=== PATIENT | female | born 1970 | race Caucasian/White ===

== ENCOUNTER → 2019-04-29 | Outpatient (CLI) | payer OTHER ==
--- NOTE | 2019-04-29 08:37 | US ---
EXAMINATION TYPE: US liver DATE OF EXAM: 04/29/2019 COMPARISON: NONE CLINICAL HISTORY: R94.5 elevated liver test. Intermittent nausea and not feeling good x couple week, history of cholecystectomy. EXAM MEASUREMENTS: Liver Length: 14.0 cm Gallbladder Wall: surgically absent CBD: 0.6 cm Right Kidney: 10.8 x 4.9 x 3.8 cm Pancreas: visualized portions wnl, tail obscured by overlying midline bowel gas Liver: mildly heterogeneous Gallbladder: surgically absent Evidence for sonographic Kramer's sign: no CBD: visualized portions wnl, limited by overlying bowel gas Right Kidney: wnl IMPRESSION: 1. Findings suggest mild hepatic steatosis.
== END ==
LOC: RADUSWWP 08:02
PROVIDERS: ATTEND Internal Medicine
DX: R94.5 Abnormal results of liver function studies (principal); Z88.5 Allergy status to narcotic agent
CPT/HCPCS: 76705

== ENCOUNTER → 2019-05-25 | Outpatient (CLI) | payer OTHER ==
[2019-05-25 19:20] LABS: Iron Saturation 22.26 (12.00-45.00)
[2019-05-25 19:52] LABS: Hepatitis A Antibody IgM Non-Reactive (Non-Reactive); Hepatitis B Core IgM Non-Reactive (Non-Reactive)
[2019-05-25 20:03] LABS: Folate, Serum 11.2 ng/mL
== END | disposition home or self-care (01) ==
LOC: LABWHC1 13:26
PROVIDERS: ATTEND Internal Medicine
DX: E11.9 Type 2 diabetes mellitus without complications (principal); R94.5 Abnormal results of liver function studies; R53.82 Chronic fatigue, unspecified
CPT/HCPCS: 36415; 80074; 82607; 82728; 82746; 82955; 83540; 83550

== ENCOUNTER → 2019-06-26 | Outpatient (CLI) | payer OTHER ==
--- NOTE | 2019-06-30 13:48 | MM ---
Reason for exam: screening (asymptomatic). History: Patient is postmenopausal. Family history of premenopausal breast cancer in sister at age 43. Benign right breast excisional biopsy many years ago. MG Screening Mammo w CAD Bilateral CC and MLO view(s) were taken. No prior studies available for comparison. The breast tissue is heterogeneously dense. This may lower the sensitivity of mammography. There is a 5mm oval subareolar density 2cm from the nipple seen on the MLO on the left breast. There are benign-appearing coarse calcifications bilaterally. ASSESSMENT: Incomplete: need additional imaging evaluation, BI-RAD 0 RECOMMENDATION: Ultrasound of the left breast. [facility] will attempt to contact patient to return for ultrasound.
== END | disposition home or self-care (01) ==
LOC: RADMAMWWP 14:32
PROVIDERS: ATTEND Internal Medicine
DX: Z12.31 Encounter for screening mammogram for malignant neoplasm of breast (principal)
CPT/HCPCS: 77067

== ENCOUNTER → 2019-07-16 | Outpatient (CLI) | payer OTHER ==
--- NOTE | 2019-07-16 11:32 | USB ---
Reason for exam: additional evaluation requested from abnormal screening. History: Patient is postmenopausal. Family history of premenopausal breast cancer in sister at age 43. Physical Findings: Nurse Summary: inversion, not new per patient states both were inverted before nursing, soft, nodular (nurse TM). US Breast Workup Limited LT Left limited breast ultrasound including focal area of concern, retroareolar and axilla demonstrates a 4 x 3 x 5mm oval, cystic lesion at 10 o'clock, benign, corresponds with mammogram. These results were verbally communicated with the patient and result sheet given to the patient on 07/16/19. ASSESSMENT: Benign, BI-RAD 2 RECOMMENDATION: Return to routine screening mammogram schedule for both breasts.
== END | disposition home or self-care (01) ==
LOC: RADUSWWP 09:32
PROVIDERS: ATTEND Internal Medicine
DX: R92.8 Other abnormal and inconclusive findings on diagnostic imaging of breast (principal)

== ENCOUNTER → 2019-08-24 | Outpatient (CLI) | payer OTHER ==
[2019-08-24 14:44] VITALS: BP 135/83; PULSE 89; RESP 18; TEMP 98.2
[2019-08-24 15:32] LABS: HCT 45.1 % (34.0-46.0); HGB 14.6 gm/dL (11.4-16.0); MCH 25.3 pg (25.0-35.0); MCHC 32.3 g/dL (31.0-37.0); MCV 78.3 fL (80.0-100.0); Mean Platelet Volume 8.1; Platelet Count 251 k/uL (150-450); RBC 5.77 m/uL (3.80-5.40); WBC 11.6 k/uL (3.8-10.6)
[2019-08-25 00:44] LABS: African American GFR (CKD) 99.6 (60.0-200.0); Albumin 4.3 g/dL (3.80-4.90); Albumin/Globulin Ratio 1.72 (1.60-3.17); Anion Gap 9.5 mmol/L (4.00-12.00); BUN/Creat Ratio 18.75 Ratio (12.00-20.00); Calcium 9.6 mg/dL (8.7-10.3); Carbon Dioxide 25.5 mmol/L (21.6-31.8); Globulin 2.5 g/dL (1.6-3.3); Potassium 4.2 mmol/L (3.5-5.5); Total Bilirubin 0.6 mg/dL (0.2-1.2); Total Protein 6.8 g/dL (6.2-8.2)
[2019-08-25 00:46] LABS: Iron Saturation 27.34 (12.00-45.00)
[2019-08-25 00:54] LABS: Vitamin D 25 Hydroxy 18.9 ng/mL (30.0-100.0)
[2019-08-25 00:55] LABS: Ferritin 106.9 ng/mL (10.0-291.0)
[2019-08-25 01:00] LABS: Folate, Serum 14.1 ng/mL
[2019-08-25 01:09] LABS: Hemoglobin A1C 5.9 % (4.0-6.0)
--- NOTE | 2019-08-27 11:11 | P.HPBAR ---
Bariatric H&P - History & Physicial H&P Date: 08/27/19 History & Physicial: Visit/CC: new pt appt Patient initial contact: Initial weight: 98.566 kg Initial weight in pounds: 217.30 Height: 5 ft 5 in Initial BMI: 36.1 Last weight: Current weight: 98.566 kg Current weight in pounds: Current BMI: Hodgen body weight (based on NIH guidelines): 56.699 kg Excess body weight loss: The patient is a 49 year-old F who presents for Bariatric Assessment. Patient presents today for new patient consultation. She is interested in sleeve gastrectomy. She's had lifetime problem obesity. Her BMI is 36. She has multiple comorbidities. Past Medical History Past Medical History: GERD/Reflux, Osteoarthritis (OA) Additional Past Medical History / Comment(s): thalessemia History of Any Multi-Drug Resistant Organisms: None Reported Past Surgical History: Cholecystectomy, Tubal Ligation, Uterine Ablation Past Anesthesia/Blood Transfusion Reactions: No Reported Reaction Past Psychological History: No Psychological Hx Reported Smoking Status: Current every day smoker Past Alcohol Use History: None Reported Additional Past Alcohol Use History / Comment(s): smokes 1/2 pack per day Past Drug Use History: None Reported Surgical - Exam Vital Signs Temp Pulse Resp BP Pulse Ox 98.2 F 89 18 135/83 98 08/24/19 14:38 08/24/19 14:38 08/24/19 14:38 08/24/19 14:38 08/24/19 14:38 - General well developed, well nourished, no distress - Eyes PERRL - ENT normal pinna - Neck no masses - Respiratory normal expansion - Cardiovascular Rhythm: regular - Abdomen Abdomen: soft, non tender Results - Labs 08/24/19 15:14 08/24/19 15:14 Bariatric Assessment & Plan Plan: RBC, BMI 36. Patient seems to have a good understanding of sleeve gastrectomy. We went over the risks and benefits of the procedure we discussed the risk of gastric staple line disruption. Patient will be scheduled for EGD. Bariatric Checklist Checklist: Plan: Checklist: EGD: 1. Hiatal hernia: 2. H. Pylori: HgbA1c: Vitamin D: Smoking: Current every day smoker Primary care physician referral: Diandra Psychiatry clearance: Cardiology clearance: Sleep study: Diet journal: VTE risk score: VTE risk level: Rehab needs at discharge:
== END ==
LOC: BARWHC3 14:16
PROVIDERS: ATTEND Surgery
DX: E66.9 Obesity, unspecified (principal); F17.200 Nicotine dependence, unspecified, uncomplicated; D50.8 Other iron deficiency anemias; E55.9 Vitamin D deficiency, unspecified; Z68.36 Body mass index [BMI] 36.0-36.9, adult
CPT/HCPCS: 84425; 80053; 82607; 82728; 82746; 83540; 83550; 85027; 82306; 83036; 93005; 36415; G0463; 99201

== ENCOUNTER 2019-09-18 07:50 | Day surgery (SDC) | payer OTHER ==
[2019-09-17 11:13] VITALS: BMI 36.2
[~2019-09-18 07:50] MED LIST: LACTATED RINGERS 1,000 ML IV SCH; LIDOCAINE 1% 20 ML VIAL (10MG/ML) FOR IV START INTRADERMA PRN
[2019-09-18 08:12] VITALS: TEMP 97.4
[2019-09-18] MEDS ORDERED: PROPOFOL 10 MG/ML 20 ML VIAL IV ONE (09:19)
[2019-09-18] MEDS ORDERED: LIDOCAINE 1% INJ 10MG/ML (20 ML MDV) ONE (09:19)
--- NOTE | 2019-09-18 09:22 | P.GSHP ---
History of Present Illness H&P Date: 09/18/19 Chief Complaint: GERD, morbid obesity This a 49-year-old female who presents today for EGD. Patient is undergoing workup for sleeve gastrectomy. Complaints of GERD. Past Medical History Past Medical History: GERD/Reflux, Hypertension, Osteoarthritis (OA) Additional Past Medical History / Comment(s): THALASSEMIA, "FATTY LIVER" , History of Any Multi-Drug Resistant Organisms: None Reported Past Surgical History: Cholecystectomy, Tonsillectomy, Tubal Ligation, Uterine Ablation Past Anesthesia/Blood Transfusion Reactions: Motion Sickness Smoking Status: Current every day smoker - Past Family History Sister(s) Family Medical History: Cancer Additional Family Medical History / Comment(s): BREAST CANCER Father Family Medical History: Cancer Medications and Allergies Home Medications Medication Instructions Recorded Confirmed Type Meloxicam [Mobic] 15 mg PO DAILY 08/17/19 09/17/19 History Omeprazole [PriLOSEC] 20 mg PO DAILY PRN 08/17/19 09/18/19 History Phentermine HCl [Adipex P] 15 mg PO DAILY 08/17/19 09/17/19 History Nicotine 21Mg/24Hr Patch [Habitrol] 1 each TRANSDERM DAILY 08/24/19 09/17/19 History Allergies Allergy/AdvReac Type Severity Reaction Status Date / Time codeine Allergy Rash/Hives, Verified 09/18/19 08:07 SHORTNESS OF BREATH iodine Allergy Unknown Verified 09/18/19 08:07 Childhood Surgical - Exam Vital Signs Temp Pulse Resp BP Pulse Ox 97.4 F L 98 16 128/74 97 09/18/19 08:10 09/18/19 08:10 09/18/19 08:10 09/18/19 08:10 09/18/19 08:10 BMI 36 - General well developed, well nourished - Eyes PERRL - ENT normal pinna - Neck no masses - Respiratory normal expansion - Cardiovascular Rhythm: regular - Abdomen Abdomen: soft, non tender Assessment and Plan Assessment: GERD, morbid obesity. We'll perform EGD.
--- NOTE | 2019-09-18 09:35 | P.OP ---
Date of Procedure: 09/18/19 Preoperative Diagnosis: Morbid obesity GERD Postoperative Diagnosis: Antral gastritis Procedure(s) Performed: EGD Anesthesia: MAC Surgeon: Brady Walden Pathology: other Condition: stable Disposition: PACU Description of Procedure: The patient's placed on the operating table in the lateral position. She received IV sedation. The gastroscope was placed in the oropharynx passed in the esophagus into stomach. Scope then placed through the pylorus. The first and second portion duodenum appeared normal. The scope was then brought back the antrum this. Mildly inflamed. Biopsies performed. Scope was retroflexed the remainder some appeared normal. There is no significant hiatal hernia. The GE junction was at 40 cm the distal esophagus appeared normal. The proximal esophagus appeared normal. Scope was withdrawn for patient.
[2019-09-18 09:41] VITALS: RESP 18
[2019-09-18 10:19] VITALS: BP 110/77; PULSE 77
== END 2019-09-18 10:21 | disposition home or self-care (01) ==
LOC: ORWHC2ENDO 07:50
PROVIDERS: ATTEND Surgery
DX: K21.9 Gastro-esophageal reflux disease without esophagitis (principal); E66.01 Morbid (severe) obesity due to excess calories; K29.50 Unspecified chronic gastritis without bleeding; I10 Essential (primary) hypertension; F17.200 Nicotine dependence, unspecified, uncomplicated; D56.9 Thalassemia, unspecified; Z68.36 Body mass index [BMI] 36.0-36.9, adult; Z88.3 Allergy status to other anti-infective agents; Z88.5 Allergy status to narcotic agent
CPT/HCPCS: 88305; 43239; J2001; J2704

== ENCOUNTER → 2019-09-25 | Outpatient (CLI) | payer OTHER ==
--- NOTE | 2019-09-25 15:25 | CT ---
EXAMINATION TYPE: CT abdomen pelvis wo con DATE OF EXAM: 09/25/2019 COMPARISON: None HISTORY: left flank pain, hx of stones CT DLP: 1046 mGycm Examination of the solid and hollow viscera is limited given the lack of contrast. FINDINGS: LUNG BASES: No evidence for nodule. No evidence for infiltrate. LIVER/GB: The gallbladder surgically absent. No space-occupying hepatic lesion. PANCREAS: No pancreatic mass identified. No inflammatory process seen. SPLEEN: No evidence for splenomegaly. No intrasplenic lesions seen. ADRENALS: No adrenal nodules identified. No evidence for thickening. KIDNEYS: No evidence for renal mass. No nephrolithiasis. No hydronephrosis. BOWEL: Appendix has a normal appearance. No evidence of bowel obstruction. No inflammatory process. Lymph nodes: No evidence for adenopathy greater than 1 cm. Abdominal aorta: Atheromatous changes seen. No evidence for aneurysm. Genital organs: No significant abnormality. Other: No significant abnormality. IMPRESSION: NO ACUTE PROCESS IDENTIFIED TO ACCOUNT FOR THE PATIENT'S SYMPTOMS.
== END | disposition home or self-care (01) ==
LOC: RADCTMAIN 14:48
PROVIDERS: ATTEND Internal Medicine
DX: R10.9 Unspecified abdominal pain (principal)
CPT/HCPCS: 74176

== ENCOUNTER → 2020-08-15 | Outpatient (CLI) | payer OTHER ==
[2020-08-15 12:39] VITALS: BMI 37.5
== END | disposition home or self-care (01) ==
LOC: BARWHC3 08:30
PROVIDERS: ATTEND Surgery
DX: E66.01 Morbid (severe) obesity due to excess calories (principal); Z71.3 Dietary counseling and surveillance; Z68.37 Body mass index [BMI] 37.0-37.9, adult
CPT/HCPCS: 97804

== ENCOUNTER → 2020-10-10 | Outpatient (CLI) | payer OTHER ==
[2020-10-10 14:00] VITALS: BP 125/85; PULSE 76; TEMP 98.2; BMI 37.5
--- NOTE | 2020-10-10 14:15 | P.HPBAR ---
Bariatric H&P - History & Physicial H&P Date: 10/10/20 History & Physicial: Visit/CC: presurgical visit Patient initial contact: Initial weight: 98.566 kg Initial weight in pounds: 217.30 Height: 5 ft 5 in Initial BMI: 36.1 Last weight: Current weight: 102.512 kg Current weight in pounds: 226.00 Current BMI: 37.5 Howard body weight (based on NIH guidelines): 56.699 kg Excess body weight loss: The patient is a 50 year-old F who presents for Bariatric Assessment. For presurgical consultation. She has been approved for gastric sleeve surgery. Patient's excellent understanding of sleeve gastrectomy. Over the risks and benefits of the surgery. Past Medical History Past Medical History: GERD/Reflux, Hypertension, Osteoarthritis (OA) Additional Past Medical History / Comment(s): THALASSEMIA, "FATTY LIVER" , History of Any Multi-Drug Resistant Organisms: None Reported Past Surgical History: Cholecystectomy, Tonsillectomy, Tubal Ligation, Uterine Ablation Past Anesthesia/Blood Transfusion Reactions: Motion Sickness Smoking Status: Former smoker - Past Family History Sister(s) Family Medical History: Cancer Additional Family Medical History / Comment(s): BREAST CANCER Father Family Medical History: Cancer Surgical - Exam Vital Signs Temp Pulse BP 98.2 F 76 125/85 10/10/20 13:59 10/10/20 13:59 10/10/20 13:59 - General well developed, well nourished, no distress - Eyes PERRL - ENT normal pinna - Neck no masses - Respiratory normal expansion - Cardiovascular Rhythm: regular - Abdomen Abdomen: soft, non tender Bariatric Assessment & Plan Plan: Morbid obesity, BMI 38. Patient will be scheduled for sleeve gastrectomy. Bariatric Checklist Checklist: Plan: Checklist: EGD: 1. Hiatal hernia: 2. H. Pylori: HgbA1c: Vitamin D: Smoking: Current every day smoker Primary care physician referral: Diandra Psychiatry clearance: Cardiology clearance: Sleep study: Diet journal: VTE risk score: VTE risk level: Rehab needs at discharge:
== END | disposition home or self-care (01) ==
LOC: BARWHC3 13:28
PROVIDERS: ATTEND Surgery
DX: E66.01 Morbid (severe) obesity due to excess calories (principal); Z68.38 Body mass index [BMI] 38.0-38.9, adult
CPT/HCPCS: 99211

== ENCOUNTER → 2020-10-10 | Outpatient (CLI) | payer OTHER ==
[2020-10-10 17:01] LABS: Basophils # (A) 0.1 k/uL (0-0.2); Basophils % (A) 1 %; Eosinophils # (A) 0.2 k/uL (0-0.7); Eosinophils % (A) 2 %; HGB 14.3 gm/dL (11.4-16.0); Lymphocytes # (A) 2.9 k/uL (1.0-4.8); Lymphocytes % (A) 26 %; MCHC 31.7 g/dL (31.0-37.0); MCV 78.6 fL (80.0-100.0); Mean Platelet Volume 8.4; Monocytes # (A) 0.6 k/uL (0-1.0); Monocytes % (A) 5 %; Neutrophils # (A) 7.1 k/uL (1.3-7.7); Neutrophils % (A) 65 %; Platelet Count 241 k/uL (150-450); Potassium 4.8 mmol/L (3.5-5.1); RBC 5.72 m/uL (3.80-5.40); RDW 14.5 % (11.5-15.5)
[2020-10-10 17:02] LABS: ALT 29 U/L (4-34); AST 23 U/L (14-36); African American GFR (CKD) >90 (>60 ml/min/1.73 sqM); Albumin 4.1 g/dL (3.5-5.0); Alkaline Phosphatase 90 U/L (38-126); Anion Gap 6 mmol/L; Blood Urea Nitrogen 13 mg/dL (7-17); Calcium 9.6 mg/dL (8.4-10.2); Carbon Dioxide 29 mmol/L (22-30); Chloride 105 mmol/L (98-107); Glucose 89 mg/dL (74-99); Non-African American GFR(CKD) >90 (>60 ml/min/1.73 sqM); Sodium 140 mmol/L (137-145); Total Bilirubin 1.2 mg/dL (0.2-1.3); Total Protein 7.5 g/dL (6.3-8.2)
== END | disposition home or self-care (01) ==
LOC: LABWHC1 14:17
PROVIDERS: ATTEND Surgery
DX: Z01.818 Encounter for other preprocedural examination (principal)
CPT/HCPCS: 36415; 80053; 85025; 93005

== ENCOUNTER 2020-10-17 06:32 | Inpatient (IN) | payer OTHER ==
[~2020-10-17 06:32] MED LIST changes: +DEXAMETHASONE SOD PHOSPHATE 4 MG/ML 1 ML VIAL IV ONE; +ENOXAPARIN 40 MG/0.4 ML SYRINGE SQ ONE; -LACTATED RINGERS 1,000 ML IV SCH; +LIDOCAINE 1% (10MG/ML) FOR IV START INTRADERMA PRN; -LIDOCAINE 1% 20 ML VIAL (10MG/ML) FOR IV START INTRADERMA PRN; +MIDAZOLAM 2 MG/2 ML VIAL IV PRN; +ONDANSETRON 4 MG/2 ML VIAL IVP ONE
[2020-10-17] MEDS: LACTATED RINGERS 1,000 ML IV SCH (07:39)
--- NOTE | 2020-10-17 08:19 | P.GSHP ---
History of Present Illness H&P Date: 10/17/20 Chief Complaint: Morbid obesity Is a 50-year-old female who presents today for laparoscopic sleeve gastrectomy. Patient's had lifetime problems obesity. Patient is aware the risks of surgery including conversion to the open procedure and injury to the stomach liver spleen vagotomy dysphagia recurrent GERD symptoms. Past Medical History Past Medical History: Blood Disorder, GERD/Reflux, Hypertension, Osteoarthritis (OA) Additional Past Medical History / Comment(s): THALASSEMIA-no current issues per pt., "FATTY LIVER", blood pressure being monitored-no meds for History of Any Multi-Drug Resistant Organisms: None Reported Past Surgical History: Cholecystectomy, Tonsillectomy, Tubal Ligation, Uterine Ablation Past Anesthesia/Blood Transfusion Reactions: Motion Sickness Smoking Status: Former smoker - Past Family History Sister(s) Family Medical History: Cancer Additional Family Medical History / Comment(s): BREAST CANCER Father Family Medical History: Cancer Medications and Allergies Home Medications Medication Instructions Recorded Confirmed Type LORazepam [Ativan] 0.5 mg PO Q4-6H PRN 10/14/20 10/17/20 History Omeprazole [PriLOSEC] 20 mg PO AC-BID PRN 10/14/20 10/17/20 History Allergies Allergy/AdvReac Type Severity Reaction Status Date / Time codeine Allergy Rash/Hives, Verified 10/17/20 07:27 SHORTNESS OF BREATH iodine Allergy Unknown Verified 10/17/20 07:27 Childhood Surgical - Exam Vital Signs Temp Pulse Resp BP Pulse Ox 98.0 F 84 16 126/71 98 10/17/20 07:32 10/17/20 07:32 10/17/20 07:32 10/17/20 07:32 10/17/20 07:32 - General well developed, well nourished, no distress - Eyes PERRL - ENT normal pinna - Neck no masses - Respiratory normal expansion - Cardiovascular Rhythm: regular - Abdomen Abdomen: soft, non tender Assessment and Plan Assessment: Morbid obesity, BMI 38. Patient will undergo sleeve gastrectomy today
[2020-10-17] MEDS ORDERED: MIDAZOLAM 2 MG/2 ML VIAL ONE (08:44)
[2020-10-17] MEDS ORDERED: PROPOFOL 10 MG/ML 20 ML VIAL IV ONE (08:44)
[2020-10-17] MEDS ORDERED: NEOSTIGMINE 1 MG/ML 10 ML VIAL ONE (08:44)
[2020-10-17] MEDS ORDERED: SUCCINYLCHOLINE CHLORIDE 100 MG/5 ML SYR IV ONE (08:44)
[2020-10-17] MEDS ORDERED: HYDROmorphone (PF) 1 MG/ML ONE (08:44)
[2020-10-17] MEDS ORDERED: KETOROLAC 15 MG/ML 1 ML VIAL ONE (08:44)
[2020-10-17] MEDS ORDERED: fentaNYL (PF) 50 MCG/ML 2 ML AMP ONE (08:44)
[2020-10-17] MEDS ORDERED: ROCURONIUM 10 MG/ML (10 ML VIAL) IV ONE (08:44)
[2020-10-17] MEDS ORDERED: GLYCOPYRROLATE 0.2 MG/ML 2 ML VIAL ONE (08:44)
[2020-10-17] MEDS ORDERED: BUPIVACAINE (PF) 0.5% 30 ML VIAL SQ ONE (09:02)
[2020-10-17] MEDS ORDERED: LACTATED RINGERS 1,000 ML IV ONE (09:10)
[2020-10-17] MEDS ORDERED: HYDROcodone/APAP 15 ML SOLUTION PO PRN (09:46)
[2020-10-17] MEDS ORDERED: HYOSCYAMINE ORAL DROPS 1.875 MG/15 ML BOTTLE PO PRN (09:46)
[2020-10-17] MEDS ORDERED: diphenhydrAMINE 50 MG/ML 1 ML VIAL IVP PRN (09:46)
[2020-10-17] MEDS ORDERED: NALOXONE 0.4 MG/ML 1 ML VIAL IV PRN (09:46)
--- NOTE | 2020-10-17 09:46 | P.OP ---
Date of Procedure: 10/17/20 Preoperative Diagnosis: Morbid obesity, BMI 38 Postoperative Diagnosis: Morbid obesity BMI 38 Procedure(s) Performed: Laparoscopic sleeve gastrectomy Anesthesia: KEVIN Surgeon: Brady Wadlen Estimated Blood Loss (ml): 10 Pathology: other (Stomach) Condition: stable Disposition: PACU Description of Procedure: The patient was placed on the operating room table in the supine position. She received general anesthesia and then was placed in dorsal lithotomy position. Her abdomen was prepped and draped in sterile fashion. The skin incision sites were anesthetized 1% local Xylocaine. And then the skin was incised with an 11 blade in the left lateral position. Using a blade less trocar under direct visualization the peritoneal cavity was entered. The abdomen was insufflated and then a 5 mm laparoscope was placed into the peritoneal cavity. A 5 mm trocar was placed in the right epigastric, and right lateral position. A 15 mm trocar was placed in the supra-umbilical position and another 5 mm trocar was placed in the left lateral position. The left lateral lobe of the liver was retracted. The stomach was visualized. The greater curvature of the stomach was then dissected using the Harmonic scissors. The dissection occurred approximately 5 cm from the pylorus to the level of the left keri. There was no hiatal hernia seen. At this point a 40-Montserratian bougie dilator was placed the oropharynx and passed into the esophagus and into the stomach by the [employer]. The sleeve gastrectomy was performed by using the powered echelon stapler with a seam guard buttress material. Sequential firings of the stapler were performed. The gastric remnant was then brought out through the 15 mm trocar site. The dilator was withdrawn. And a orogastric tube was replaced into the stomach. The stomach was insufflated with 200 mL of methylene blue normal saline. There was no evidence of extravasation. The abdomen was irrigated there is no bleeding seen. The Marcelo-Wilian device was used to close the 15 mm trocar with 0 Vicryl. Skin was closed with interrupted 3-0 Monocryl sutures once the trochars withdrawn. Dermabond dressing was applied. Patient was sent to recovery in stable condition.
[2020-10-17] MEDS: HYDROmorphone 0.5 MG/0.5 ML SYRINGE IVP PRN ×3 (10:00→10:20)
--- NOTE | 2020-10-17 12:46 | P.CONS ---
History of Present Illness - Reason for Consult Postoperative complication management - History of Present Illness Patient is a pleasant 50-year-old female admitted for a laparoscopic sleeve gastrectomy. Patient is just coming out of ICU because of which patient was drowsy when I evaluated the patient although denied any fever chills nausea vomiting dysuria abdominal pain. Used to smoke in the past quit in November 2019. Patient doesn't have a Phelan catheter at this time. Review of Systems All other review of systems is negative except those mentioned above in HPI Past Medical History Past Medical History: Blood Disorder, GERD/Reflux, Hypertension, Osteoarthritis (OA) Additional Past Medical History / Comment(s): THALASSEMIA-no current issues per pt., "FATTY LIVER", blood pressure being monitored-no meds for History of Any Multi-Drug Resistant Organisms: None Reported Past Surgical History: Cholecystectomy, Tonsillectomy, Tubal Ligation, Uterine A blation Past Anesthesia/Blood Transfusion Reactions: Motion Sickness Past Psychological History: Anxiety Additional Psychological History / Comment(s): just this week, very overwhelmed Smoking Status: Former smoker Past Alcohol Use History: None Reported Additional Past Alcohol Use History / Comment(s): smokes 1/2 pack per day STARTED SMOKING AT AGE 16, quit smoking 12-01-19 Past Drug Use History: None Reported - Past Family History Sister(s) Family Medical History: Cancer Additional Family Medical History / Comment(s): BREAST CANCER Father Family Medical History: Cancer Medications and Allergies Home Medications Medication Instructions Recorded Confirmed Type LORazepam [Ativan] 0.5 mg PO Q4-6H PRN 10/14/20 10/17/20 History Omeprazole [PriLOSEC] 20 mg PO AC-BID PRN 10/14/20 10/17/20 History Allergies Allergy/AdvReac Type Severity Reaction Status Date / Time codeine Allergy Rash/Hives, Verified 10/17/20 07:27 SHORTNESS OF BREATH iodine Allergy Unknown Verified 10/17/20 07:27 Childhood Physical Exam Vitals: Vital Signs Temp Pulse Pulse Resp BP Pulse Ox 10/17/20 11:10 97.7 F 56 L 16 123/80 100 10/17/20 10:45 62 16 110/68 97 10/17/20 10:31 85 16 99/63 95 10/17/20 10:16 60 16 116/76 100 10/17/20 10:01 62 16 109/63 100 10/17/20 09:46 97.7 F 72 16 125/71 98 10/17/20 07:32 98.0 F 84 16 126/71 98 Intake and Output 10/16/20 10/17/20 10/17/20 22:59 06:59 14:59 Intake Total 1800 Output Total 10 Balance 1790 Intake: IV 1800 Output: Estimated Blood Loss 10 Other: Weight 103.691 kg PHYSICAL EXAMINATION: GENERAL: The patient is drowsy and oriented x3, not in any acute distress. Well developed, well nourished. HEENT: Pupils are round and equally reacting to light. EOMI. No scleral icterus. No conjunctival pallor. Normocephalic, atraumatic. No pharyngeal erythema. No thyromegaly. CARDIOVASCULAR: S1 and S2 present. No murmurs, rubs, or gallops. PULMONARY: Chest is clear to auscultation, no wheezing or crackles. ABDOMEN: Soft, nontender, nondistended, normoactive bowel sounds. No palpable organomegaly. MUSCULOSKELETAL: No joint swelling or deformity. EXTREMITIES: No cyanosis, clubbing, or pedal edema. NEUROLOGICAL: Gross neurological examination did not reveal any focal deficits. SKIN: No rashes. Assessment and Plan Plan: -Laparoscopic sleeve gastrectomy: Patient postoperatively is clinically doing well did a prophylaxis and due to prophylaxis per primary service Gastroesophageal reflux disease: Patient is on Protonix which will be continued
[2020-10-17] MEDS: KETOROLAC 15 MG/ML 1 ML VIAL IVP SCH ×2 (13:21→18:46)
[2020-10-17] MEDS: ALBUTEROL NEBULIZED 2.5 MG/3 ML INHALATION SCH ×3 (14:08→20:01)
[2020-10-17] MEDS: 0.9% NACL WITH KCL 20 MEQ/L 1,000 ML IV SCH ×3 (15:53→22:37)
[2020-10-17] MEDS: HYDROmorphone 1 MG/ML 1 ML SYRINGE IVP PRN ×2 (15:58→21:49)
[2020-10-17] MEDS: ONDANSETRON 4 MG/2 ML VIAL IVP PRN (18:49)
[2020-10-18] MEDS: KETOROLAC 15 MG/ML 1 ML VIAL IVP SCH ×5 (00:07→23:23)
[2020-10-18] MEDS: LACTATED RINGERS 1,000 ML IV SCH (04:14)
[2020-10-18] MEDS: ONDANSETRON 4 MG/2 ML VIAL IVP PRN ×3 (04:15→18:07)
[2020-10-18] MEDS: 0.9% NACL WITH KCL 20 MEQ/L 1,000 ML IV SCH (07:22)
[2020-10-18] MEDS: 1: MVI, ADULT NO.4 WITH VIT K 10 ML, THIAMINE 100 MG, FOLIC ACID 1 MG, POTASSIUM CHLORID IV SCH ×12 (08:14→15:55)
[2020-10-18 08:17] LABS: Basophils % (A) 0 %; Eosinophils % (A) 0 %; HCT 39.2 % (34.0-46.0); HGB 12.2 gm/dL (11.4-16.0); Lymphocytes # (A) 2.3 k/uL (1.0-4.8); Lymphocytes % (A) 19 %; MCH 24.7 pg (25.0-35.0); MCHC 31.1 g/dL (31.0-37.0); MCV 79.5 fL (80.0-100.0); Mean Platelet Volume 8.2; Monocytes # (A) 0.8 k/uL (0-1.0); Monocytes % (A) 6 %; Neutrophils # (A) 9.1 k/uL (1.3-7.7); Neutrophils % (A) 73 %; Platelet Count 187 k/uL (150-450); RBC 4.93 m/uL (3.80-5.40); RDW 14.8 % (11.5-15.5); WBC 12.3 k/uL (3.8-10.6)
--- NOTE | 2020-10-18 08:52 | FL ---
EXAMINATION TYPE: FL UGI DATE OF EXAM: 10/18/2020 COMPARISON: NONE HISTORY: Status post gastric sleeve TECHNIQUE: A single contrast noted UGI study is performed. Attention directed to the gastroesophagea l junction and stomach region FINDINGS: The esophagus shows normal motility and emptying into the stomach. No evidence of hiatal hernia or s tricture noted. Some transient reflux was noted from the level of the distal esophagus to the mid tho racic esophagus. The stomach shows postop change status post gastric sleeve. There is no evident leak. There is some h esitancy of contrast coursing across the surgical bed into the proximal small bowel. IMPRESSION: Postop changes as described. 1 minute 49 seconds fluoroscopy time, 14 intraoperative images document the procedure
[2020-10-18] MEDS: ALBUTEROL NEBULIZED 2.5 MG/3 ML INHALATION SCH ×4 (08:54→20:43)
[2020-10-18] MEDS: ENOXAPARIN 40 MG/0.4 ML SYRINGE SQ SCH (09:38)
[2020-10-18] MEDS: PANTOPRAZOLE 40 MG/10 ML VIAL IV SCH (09:44)
[2020-10-18 11:29] VITALS: BMI 38.0
--- NOTE | 2020-10-18 12:05 | P.PN ---
Subjective Progress Note Date: 10/18/20 CHIEF COMPLAINT: Morbid obesity HISTORY OF PRESENT ILLNESS: Postoperative day #1 status post laparoscopic sleeve gastrectomy. Upper GI showed no evidence of leak. She started on a bariatric clear liquid diet. She did have some nausea. Denies any bowel movements. She is passing some gas. She is afebrile. WBC 12.3 electrolytes pending PHYSICAL EXAM: VITAL SIGNS: Reviewed. GENERAL: Well-developed in no acute distress. HEENT: No sclera icterus. Extraocular movements grossly intact. Moist buccal mucosa. Head is atraumatic, normocephalic. ABDOMEN: Soft. Nondistended. Incision sites clean dry and intact NEUROLOGIC: Alert and oriented. Cranial nerves II through XII grossly intact. ASSESSMENT: 1. Morbid obesity postop day #1 status post laparoscopic sleeve gastrectomy PLAN: -Start bariatric clear liquid diet -Continue pain medication as needed -Continue medication as needed for nausea -Encourage patient to ambulate and use incentive spirometer -Anticipate discharge possibly tomorrow -GI prophylaxis Protonix and DVT prophylaxis Lovenox Physician Supervisor Record Press note has been reviewed by physician. Signing provider agrees with the documented findings, assessment, and plan of care. Objective - Vital Signs Vital signs: Vital Signs Temp 98.0 F 10/18/20 07:31 Pulse 75 10/18/20 11:57 Resp 16 10/18/20 11:57 BP 95/58 10/18/20 07:31 Pulse Ox 96 10/18/20 08:58 Intake & Output 10/17/20 10/18/20 10/18/20 18:59 06:59 18:59 Intake Total 1800 Output Total 10 Balance 1790 Weight 103.691 kg 103.691 kg Intake: IV 1800 Output: Estimated Blood Loss 10 Other: Voiding Method Toilet # Voids 1 1 1 - Labs CBC & Chem 7: 10/18/20 06:46 Labs: Abnormal Lab Results - Last 24 Hours (Table) 10/18/20 Range/Units 06:46 WBC 12.3 H (3.8-10.6) k/uL MCV 79.5 L (80.0-100.0) fL MCH 24.7 L (25.0-35.0) pg Neutrophils # 9.1 H (1.3-7.7) k/uL
[2020-10-18 12:17] LABS: African American GFR (CKD) 98.9 (60.0-200.0); Anion Gap 6.9 mmol/L (4.00-12.00); Calcium 8.6 mg/dL (8.7-10.3); Carbon Dioxide 26.1 mmol/L (21.6-31.8); Magnesium 1.8 mg/dL (1.5-2.4); Non-African American GFR(CKD) 85.4 (60.0-200.0); Phosphorus 3.9 mg/dL (2.4-5.1); Potassium 4.8 mmol/L (3.5-5.5)
--- NOTE | 2020-10-18 14:30 | P.PN ---
Subjective Progress Note Date: 10/18/20 - Reason for Consult Postoperative complication management - History of Present Illness Patient is a pleasant 50-year-old female admitted for a laparoscopic sleeve gastrectomy. Patient is just coming out of ICU because of which patient was drowsy when I evaluated the patient although denied any fever chills nausea vomiting dysuria abdominal pain. Used to smoke in the past quit in November 2019. Patient doesn't have a Phelan catheter at this time. 10/18/2020 Patient is seen and evaluated in follow-up status post laparoscopic sleeve gastrectomy postop day #1. She was having some mild nausea with abdominal discomfort but is tolerating clear liquids. No acute overnight issues. Potassium today is 4.8, sodium is 141, magnesium is 1.8. White Blood count slightly elevated at 12.3 although most likely reactive as patient is not having any signs of fevers or infection. Discussed with the patient about using incentive spirometer at least 10 times every hour while awake and encourage increasing activity as tolerated. Will continue to follow along with surgery. Review of systems: Constitutional: No reports of fatigue, fever, or chills Cardiovascular: No reports of chest pain or palpitations Respiratory: No reports of shortness of breath or cough GI: Reports occasional nausea, with no reports of vomiting, or diarrhea : No reports of dysuria or retention Neurovascular: No reports of weakness or numbness All medications have been reviewed Objective - Vital Signs Vital signs: Vital Signs Temp 98.0 F 10/18/20 07:31 Pulse 74 10/18/20 09:04 Resp 16 10/18/20 07:31 BP 95/58 10/18/20 07:31 Pulse Ox 96 10/18/20 08:58 Intake & Output 10/17/20 10/18/20 10/18/20 18:59 06:59 18:59 Intake Total 1800 Output Total 10 Balance 1790 Weight 103.691 kg 103.691 kg Intake: IV 1800 Output: Estimated Blood Loss 10 Other: Voiding Method Toilet # Voids 1 1 1 - Exam GENERAL: The patient is awake, alert and oriented x3, not in any acute distress. Well developed, well nourished. HEENT: Pupils are round and equally reacting to light. EOMI. No scleral icterus. No conjunctival pallor. Normocephalic, atraumatic. No pharyngeal erythema. No thyromegaly. CARDIOVASCULAR: S1 and S2 present. No murmurs, rubs, or gallops. PULMONARY: Chest is clear to auscultation, no wheezing or crackles. ABDOMEN: Soft, mildly tender upon palpation, nondistended, normoactive bowel so unds. No palpable organomegaly. MUSCULOSKELETAL: No joint swelling or deformity. EXTREMITIES: No cyanosis, clubbing, or pedal edema. NEUROLOGICAL: Gross neurological examination did not reveal any focal deficits. SKIN: No rashes. - Labs CBC & Chem 7: 10/18/20 06:46 10/18/20 06:46 Labs: Abnormal Lab Results - Last 24 Hours (Table) 10/18/20 Range/Units 06:46 WBC 12.3 H (3.8-10.6) k/uL MCV 79.5 L (80.0-100.0) fL MCH 24.7 L (25.0-35.0) pg Neutrophils # 9.1 H (1.3-7.7) k/uL Assessment and Plan Assessment: -Laparoscopic sleeve gastrectomy: Patient is postop day #1 -Gastroesophageal reflux disease: Patient is on Protonix which will be continued -GI prophylaxis -DVT prophylaxis Plan: Patient was started on clear liquids and tolerating thus far. Discussed with the patient about increasing activity as tolerated and continuing to use incentive spirometer at least 10 times every hour while awake. Patient is currently passing gas with no reports of bowel movements noted. Will continue to follow along with surgery. Further recommendations to follow. Anticipate discharge in 24 hours.
[2020-10-18] MEDS ORDERED: MAGNESIUM SULFATE-D5W PMX 1 GM in DEXTROSE/WATER 1 100ML.BAG IVPB ONE (15:00)
[2020-10-18] MEDS ORDERED: ONDANSETRON 4 MG/2 ML VIAL IVP PRN (18:28)
[2020-10-18] MEDS ORDERED: METOCLOPRAMIDE 5 MG/ML 2 ML VIAL IVP STA (19:37)
[2020-10-18] MEDS ORDERED: ONDANSETRON 4 MG/2 ML VIAL IVP STA (19:38)
[2020-10-18] MEDS: METOCLOPRAMIDE 5 MG/ML 2 ML VIAL IVP SCH (23:24)
[2020-10-19] MEDS: LACTATED RINGERS 1,000 ML IV SCH (04:26)
[2020-10-19] MEDS: 1: MVI, ADULT NO.4 WITH VIT K 10 ML, THIAMINE 100 MG, FOLIC ACID 1 MG, POTASSIUM CHLORID IV SCH ×12 (05:15→13:26)
[2020-10-19] MEDS: KETOROLAC 15 MG/ML 1 ML VIAL IVP SCH (05:16)
[2020-10-19] MEDS: METOCLOPRAMIDE 5 MG/ML 2 ML VIAL IVP SCH ×2 (05:16→11:43)
[2020-10-19 06:34] LABS: Basophils % (A) 0 %; Eosinophils # (A) 0.1 k/uL (0-0.7); Eosinophils % (A) 2 %; HCT 37.3 % (34.0-46.0); Lymphocytes # (A) 2.3 k/uL (1.0-4.8); Lymphocytes % (A) 26 %; MCH 25.6 pg (25.0-35.0); MCHC 32.2 g/dL (31.0-37.0); MCV 79.3 fL (80.0-100.0); Mean Platelet Volume 7.9; Monocytes # (A) 0.5 k/uL (0-1.0); Monocytes % (A) 6 %; Neutrophils # (A) 5.9 k/uL (1.3-7.7); Neutrophils % (A) 66 %; Platelet Count 173 k/uL (150-450)
[2020-10-19 07:12] VITALS: BP 123/79; RESP 14; TEMP 98.5
[2020-10-19] MEDS ORDERED: bisacodyL 5 MG TABLET.DR PO PRN (08:00)
[2020-10-19] MEDS: ENOXAPARIN 40 MG/0.4 ML SYRINGE SQ SCH (08:42)
[2020-10-19] MEDS: PANTOPRAZOLE 40 MG/10 ML VIAL IV SCH (08:42)
[2020-10-19] MEDS: ALBUTEROL NEBULIZED 2.5 MG/3 ML INHALATION SCH ×2 (09:24→13:14)
[2020-10-19 09:40] VITALS: PULSE 93
--- NOTE | 2020-10-19 11:41 | P.DS ---
Providers Date of admission: 10/17/20 06:32 Expected date of discharge: 10/19/20 Attending physician: Brady Walden Consults: 10/17/20 09:46 Consult Physician Routine Consulting Provider: Jnae Reyes Consult Reason/Comments: Medical management Do you want consulting provider notified?: Yes Primary care physician: Diandra Castro Hospital Course: Discharge diagnosis 1. Morbid obesity status post laparoscopic sleeve gastrectomy Hospital course This is a 50-year-old female with a known history of morbid obesity. She is status post laparoscopic sleeve gastrectomy. Patient's upper GI completed showing no evidence of leak. She is tolerated bariatric clear liquid diet. She denies any nausea vomiting. She is having bowel movements. She is up and ambulating. Her pain is controlled. She is afebrile. She is stable for discharge home. Physician Clerical Specialist note has been reviewed by physician. Signing provider agrees with the documented findings, assessment, and plan of care. Patient Condition at Discharge: Stable Plan - Discharge Summary Discharge Rx Participant: Yes New Discharge Prescriptions: New bisacodyL [Dulcolax] 5 mg PO DAILY PRN #10 tablet. PRN Reason: Constipation Simethicone 40 mg/0.6 ml Drops [Mylicon Drops] 40 mg PO PCHS PRN #30 ml PRN Reason: Gas Omeprazole [PriLOSEC] 40 mg PO DAILY #30 capsule. Ondansetron Odt [Zofran Odt] 4 mg PO Q8HR PRN #9 tab PRN Reason: Nausea HYDROcodone/APAP [[place] Elixir 7.5-325Mg/15Ml] 30 ml PO Q6HR PRN #360 ml PRN Reason: Pain Continue LORazepam [Ativan] 0.5 mg PO Q4-6H PRN PRN Reason: Anxiety Discontinued Omeprazole [PriLOSEC] 20 mg PO AC-BID PRN PRN Reason: Heartburn Discharge Medication List LORazepam [Ativan] 0.5 mg PO Q4-6H PRN 10/14/20 [History] HYDROcodone/APAP [[place] Elixir 7.5-325Mg/15Ml] 30 ml PO Q6HR PRN #360 ml 10/19/20 [Rx] Omeprazole [PriLOSEC] 40 mg PO DAILY #30 capsule. 11/18/20 [Rx] Ondansetron Odt [Zofran Odt] 4 mg PO Q8HR PRN #9 tab 10/19/20 [Rx] Simethicone 40 mg/0.6 ml Drops [Mylicon Drops] 40 mg PO PCHS PRN #30 ml 10/19/20 [Rx] bisacodyL [Dulcolax] 5 mg PO DAILY PRN #10 tablet. 10/19/20 [Rx] Follow up Appointment(s)/Referral(s): Gloria Jim MD [Primary Care Provider] - [facility] [place] [facility] - 10/21/20 10:00 am (Nurse Visit) Patient Instructions/Handouts: Laparoscopic Sleeve Gastrectomy (DC), Laparoscopic Sleeve Gastrectomy (GEN) Activity/Diet/Wound Care/Special Instructions: No driving while taking [place] No lifting over 10 pounds You may shower. No soaking or tub baths for 2 weeks Very light activity until you are reevaluated at your follow up appointment with your surgeon No straws or carbonated beverages Cut or crush all pills greater than the size of a tic tac Discharge Disposition: HOME SELF-CARE
--- NOTE | 2020-10-19 13:14 | P.PN ---
Subjective Progress Note Date: 10/19/20 - Reason for Consult Postoperative complication management - History of Present Illness Patient is a pleasant 50-year-old female admitted for a laparoscopic sleeve gastrectomy. Patient is just coming out of ICU because of which patient was drowsy when I evaluated the patient although denied any fever chills nausea vomiting dysuria abdominal pain. Used to smoke in the past quit in November 2019. Patient doesn't have a Phelan catheter at this time. 10/18/2020 Patient is seen and evaluated in follow-up status post laparoscopic sleeve gastrectomy postop day #1. She was having some mild nausea with abdominal discomfort but is tolerating clear liquids. No acute overnight issues. Potassium today is 4.8, sodium is 141, magnesium is 1.8. White Blood count slightly elevated at 12.3 although most likely reactive as patient is not having any signs of fevers or infection. Discussed with the patient about using incentive spirometer at least 10 times every hour while awake and encourage increasing activity as tolerated. Will continue to follow along with surgery. Review of systems: Constitutional: No reports of fatigue, fever, or chills Cardiovascular: No reports of chest pain or palpitations Respiratory: No reports of shortness of breath or cough GI: Reports occasional nausea, with no reports of vomiting, or diarrhea : No reports of dysuria or retention Neurovascular: No reports of weakness or numbness All medications have been reviewed 10/19/2020 Patient is seen in follow-up today postop day #2 status post laparoscopic sleeve gastrectomy and is being closely monitored. Patient is tolerating diet and states she is having gas and having bowel movements. She states she doesn't have much of an appetite but is eating and tolerating with no reports of nausea or vomiting. Patient has been up and increasing activity as tolerated. Currently no reports of chest pain, shortness of breath, or palpitations. Patient is using incentive spirometer at least 10 times every hour while awake. Patient is afebrile. Patient states she will be going home today. Objective - Vital Signs Vital signs: Vital Signs Temp 98.5 F 10/19/20 07:11 Pulse 93 10/19/20 09:37 Resp 14 10/19/20 07:11 BP 123/79 10/19/20 07:11 Pulse Ox 95 10/19/20 09:24 Intake & Output 10/18/20 10/19/20 10/19/20 18:59 06:59 18:59 Intake Total 200 2501.2 Balance 200 2501.2 Weight 103.691 kg Intake: Intake, IV Titration 2020.2 Amount 0.9% NaCl with KCl 20 Meq 1000 /l 1,000 ml @ 100 mls/hr IV .BY DURATION MIRTA Rx#: [id number] Mvi, Adult No.4 with Vit 1021.2 K 10 ml Thiamine 100 mg Folic Acid 1 mg Potassium Chloride 20 meq In Sodium Chloride 0.9% 1, 000 ml @ 100 mls/hr IV . BY DURATION MIRTA Rx#: [id number] Oral 200 480 Other: Voiding Method Toilet Toilet # Voids 1 2 - Exam GENERAL: The patient is awake, alert and oriented x3, not in any acute distress. Well developed, well nourished. HEENT: Pupils are round and equally reacting to light. EOMI. No scleral icterus. No conjunctival pallor. Normocephalic, atraumatic. No pharyngeal erythema. No thyromegaly. CARDIOVASCULAR: S1 and S2 present. No murmurs, rubs, or gallops. PULMONARY: Chest is clear to auscultation, no wheezing or crackles. ABDOMEN: Soft, nontender, nondistended, normoactive bowel sounds. No palpable organomegaly. MUSCULOSKELETAL: No joint swelling or deformity. EXTREMITIES: No cyanosis, clubbing, or pedal edema. NEUROLOGICAL: Gross neurological examination did not reveal any focal deficits. SKIN: No rashes. - Labs CBC & Chem 7: 10/19/20 05:55 10/18/20 06:46 Labs: Abnormal Lab Results - Last 24 Hours (Table) 10/19/20 Range/Units 05:55 MCV 79.3 L (80.0-100.0) fL Assessment and Plan Assessment: -Laparoscopic sleeve gastrectomy: Patient is postop day #2 -Gastroesophageal reflux disease: Patient is on Protonix which will be continued -GI prophylaxis -DVT prophylaxis Plan: Patient tolerating clear liquids and will follow-up with surgery in the outpatient setting as discussed and scheduled. Patient reports passing gas and a bowel movement this morning. Patient has increased activity and has been using incentive spirometer. Discussed with the patient about continuing to use the incentive spirometer while at home. Will continue to follow along with surgery during hospitalization. Patient states she is being discharged today.
== END 2020-10-19 14:07 | disposition home or self-care (01) | DRG 621 ==
LOC: 2ORMAIN 06:32 → 4SSUR 10:21
PROVIDERS: ADMIT Surgery; ATTEND Surgery
PROC: 0DB64Z3 Excision of Stomach, Percutaneous Endoscopic Approach, Vertical (ICD-10-PCS; principal; 2020-10-17 08:30)
DX: E66.01 Morbid (severe) obesity due to excess calories (principal); K76.0 Fatty (change of) liver, not elsewhere classified; Z68.38 Body mass index [BMI] 38.0-38.9, adult; D56.9 Thalassemia, unspecified; I10 Essential (primary) hypertension; K21.9 Gastro-esophageal reflux disease without esophagitis; M19.90 Unspecified osteoarthritis, unspecified site; F41.9 Anxiety disorder, unspecified; Z87.891 Personal history of nicotine dependence; Z90.49 Acquired absence of other specified parts of digestive tract; Z90.89 Acquired absence of other organs; Z98.51 Tubal ligation status; Z87.19 Personal history of other diseases of the digestive system; Z87.42 Personal history of other diseases of the female genital tract; Z98.890 Other specified postprocedural states; Z80.3 Family history of malignant neoplasm of breast; Z88.5 Allergy status to narcotic agent; Z88.8 Allergy status to other drugs, medicaments and biological substances
CPT/HCPCS: 74240; 80051; 82310; 82565; 83735; 84100; 84520; 85025; 88307; 94640; 94760

== ENCOUNTER → 2020-10-24 | Outpatient (CLI) | payer OTHER ==
[2020-10-24 14:52] VITALS: BMI 36.2
[2020-10-24 15:13] VITALS: BP 128/72; PULSE 83; RESP 16; TEMP 98.3
--- NOTE | 2020-11-03 12:05 | P.HPBAR ---
Bariatric H&P - History & Physicial H&P Date: 10/24/20 History & Physicial: Visit/CC: Post surg Patient initial contact: Initial weight: 98.566 kg Initial weight in pounds: 217.30 Height: 5 ft 5 in Initial BMI: 36.1 Last weight: Current weight: 98.883 kg Current weight in pounds: 218.00 Current BMI: 36.2 [place] body weight (based on NIH guidelines): 56.699 kg Excess body weight loss: The patient is a 50 year-old F who presents for Bariatric Assessment. Patient presents today for postoperative follow-up. She feels well. He has no complaints. Past Medical History Past Medical History: Blood Disorder, GERD/Reflux, Hypertension, Osteoarthritis (OA) Additional Past Medical History / Comment(s): THALASSEMIA-no current issues per pt., "FATTY LIVER", blood pressure being monitored-no meds for History of Any Multi-Drug Resistant Organisms: None Reported Past Surgical History: Bariatric Surgery, Cholecystectomy, Tonsillectomy, Tubal Ligation, Uterine Ablation Additional Past Surgical History / Comment(s): Sleeve 10/17/20 Past Anesthesia/Blood Transfusion Reactions: Motion Sickness Past Psychological History: Anxiety Additional Psychological History / Comment(s): just this week, very overwhelmed Smoking Status: Former smoker Past Alcohol Use History: None Reported Additional Past Alcohol Use History / Comment(s): smokes 1/2 pack per day STARTED SMOKING AT AGE 16, quit smoking 12-01-19 Past Drug Use History: None Reported - Past Family History Sister(s) Family Medical History: Cancer Additional Family Medical History / Comment(s): BREAST CANCER Father Family Medical History: Cancer Surgical - Exam Vital Signs Temp Pulse Resp BP 98.3 F 83 16 128/72 10/24/20 15:12 10/24/20 15:12 10/24/20 15:12 10/24/20 15:12 - General well developed, well nourished, no distress - Eyes PERRL - ENT normal pinna - Neck no masses - Respiratory normal expansion - Cardiovascular Rhythm: regular - Abdomen Abdomen: soft, non tender Bariatric Assessment & Plan Plan: Status post sleeve gastrectomy. Patient did quite well. She'll follow-up in 2 weeks. Bariatric Checklist Checklist: Plan: Checklist: EGD: 1. Hiatal hernia: 2. H. Pylori: HgbA1c: Vitamin D: Smoking: Current every day smoker Primary care physician referral: Diandra Psychiatry clearance: Cardiology clearance: Sleep study: Diet journal: VTE risk score: VTE risk level: Rehab needs at discharge:
== END | disposition home or self-care (01) ==
LOC: BARWHC3 13:06
PROVIDERS: ATTEND Surgery
DX: Z48.815 Encounter for surgical aftercare following surgery on the digestive system (principal); Z98.84 Bariatric surgery status
CPT/HCPCS: 97803; G0463; 99211

== ENCOUNTER → 2020-12-05 | Outpatient (CLI) | payer OTHER ==
[2020-12-05 14:45] VITALS: BP 141/84; PULSE 71; RESP 16; TEMP 98.5; BMI 33.7
--- NOTE | 2020-12-05 14:47 | P.HPBAR ---
Bariatric H&P - History & Physicial H&P Date: 12/05/20 History & Physicial: Visit/CC: f/u Patient initial contact: Initial weight: 98.566 kg Initial weight in pounds: 217.30 Height: 5 ft 5 in Initial BMI: 36.1 Last weight: Current weight: 92.079 kg Current weight in pounds: 203.00 Current BMI: 33.7 [place] body weight (based on NIH guidelines): 56.699 kg Excess body weight loss: 15.4% The patient is a 50 year-old F who presents for Bariatric Assessment. Patient presents today for sleeve gastric all. She is an excellent weight loss. She has had some mild GERD. Past Medical History Past Medical History: Blood Disorder, GERD/Reflux, Hypertension, Osteoarthritis (OA) Additional Past Medical History / Comment(s): THALASSEMIA-no current issues per pt., "FATTY LIVER", blood pressure being monitored-no meds for History of Any Multi-Drug Resistant Organisms: None Reported Past Surgical History: Bariatric Surgery, Cholecystectomy, Tonsillectomy, Tubal Ligation, Uterine Ablation Additional Past Surgical History / Comment(s): Sleeve 10/17/20 Past Anesthesia/Blood Transfusion Reactions: Motion Sickness Past Psychological History: Anxiety Additional Psychological History / Comment(s): just this week, very overwhelmed Smoking Status: Former smoker Past Alcohol Use History: None Reported Additional Past Alcohol Use History / Comment(s): smokes 1/2 pack per day START ED SMOKING AT AGE 16, quit smoking 12-01-19 Past Drug Use History: None Reported - Past Family History Sister(s) Family Medical History: Cancer Additional Family Medical History / Comment(s): BREAST CANCER Father Family Medical History: Cancer Surgical - Exam Vital Signs Temp Pulse Resp BP 98.5 F 71 16 141/84 12/05/20 14:44 12/05/20 14:44 12/05/20 14:44 12/05/20 14:44 - General well developed, well nourished, no distress - Eyes PERRL - ENT normal pinna - Neck no masses - Respiratory normal expansion - Cardiovascular Rhythm: regular - Abdomen Abdomen: soft, non tender Bariatric Assessment & Plan Plan: Status post sleeve gastric. Patient has had minimal GERD. She'll follow-up in 4 weeks. Bariatric Checklist Checklist: Plan: Checklist: EGD: 1. Hiatal hernia: 2. H. Pylori: HgbA1c: Vitamin D: Smoking: Current every day smoker Primary care physician referral: Diandra Psychiatry clearance: Cardiology clearance: Sleep study: Diet journal: VTE risk score: VTE risk level: Rehab needs at discharge:
[2020-12-05 16:04] LABS: HCT 43.4 % (34.0-46.0); HGB 14.3 gm/dL (11.4-16.0); MCH 25.3 pg (25.0-35.0); MCHC 32.8 g/dL (31.0-37.0); MCV 77.1 fL (80.0-100.0); Mean Platelet Volume 8.3; Microcytosis Slight; Platelet Count 212 k/uL (150-450); RBC 5.63 m/uL (3.80-5.40); RDW 14.9 % (11.5-15.5)
[2020-12-06 04:08] LABS: African American GFR (CKD) 98.9 (60.0-200.0); Albumin 4.4 g/dL (3.80-4.90); Albumin/Globulin Ratio 1.76 (1.60-3.17); Anion Gap 10.3 mmol/L (4.00-12.00); BUN/Creat Ratio 23.75 Ratio (12.00-20.00); Calcium 9.6 mg/dL (8.7-10.3); Carbon Dioxide 24.7 mmol/L (21.6-31.8); Globulin 2.5 g/dL (1.6-3.3); Non-African American GFR(CKD) 85.4 (60.0-200.0); Potassium 4.8 mmol/L (3.5-5.5); Total Bilirubin 1.2 mg/dL (0.3-1.2); Total Protein 6.9 g/dL (6.2-8.2)
[2020-12-06 04:22] LABS: Folate, Serum 8.9 ng/mL
== END | disposition home or self-care (01) ==
LOC: BARWHC3 14:08
PROVIDERS: ATTEND Surgery
DX: Z48.815 Encounter for surgical aftercare following surgery on the digestive system (principal); Z98.84 Bariatric surgery status; E66.01 Morbid (severe) obesity due to excess calories; Z71.3 Dietary counseling and surveillance; K21.9 Gastro-esophageal reflux disease without esophagitis; E44.0 Moderate protein-calorie malnutrition; E55.9 Vitamin D deficiency, unspecified
CPT/HCPCS: 84425; 80053; 82607; 82746; 84443; 85027; 82306; 97803; G0463; 99211

== ENCOUNTER → 2021-02-20 | Outpatient (CLI) | payer OTHER ==
[2021-02-20 15:56] VITALS: BP 124/61; PULSE 88; RESP 18; TEMP 98.3; BMI 30.7
--- NOTE | 2021-02-20 16:26 | P.HPBAR ---
Bariatric H&P - History & Physicial H&P Date: 02/20/21 History & Physicial: Visit/CC: follow up Patient initial contact: Initial weight: 98.566 kg Initial weight in pounds: 217.30 Height: 5 ft 5 in Initial BMI: 36.1 Last weight: Current weight: 83.915 kg Current weight in pounds: 185.00 Current BMI: 30.7 [place] body weight (based on NIH guidelines): 56.699 kg Excess body weight loss: 34.9% The patient is a 50 year-old F who presents for Bariatric Assessment. Patient presents today for sleeve gastric follow-up. She's had some complaints of dysphagia. Past Medical History Past Medical History: Blood Disorder, GERD/Reflux, Hypertension, Osteoarthritis (OA) Additional Past Medical History / Comment(s): THALASSEMIA-no current issues per pt., "FATTY LIVER", blood pressure being monitored-no meds for History of Any Multi-Drug Resistant Organisms: None Reported Past Surgical History: Bariatric Surgery, Cholecystectomy, Tonsillectomy, Tubal Ligation, Uterine Ablation Additional Past Surgical History / Comment(s): Sleeve 10/17/20 Past Anesthesia/Blood Transfusion Reactions: Motion Sickness Past Psychological History: Anxiety Additional Psychological History / Comment(s): just this week, very overwhelmed Smoking Status: Former smoker Past Alcohol Use History: None Reported Additional Past Alcohol Use History / Comment(s): smokes 1/2 pack per day STARTED SMOKING AT AGE 16, quit smoking 12-01-19 Past Drug Use History: None Reported - Past Family History Sister(s) Family Medical History: Cancer Additional Family Medical History / Comment(s): BREAST CANCER Father Family Medical History: Cancer Surgical - Exam Vital Signs Temp Pulse Resp BP 98.3 F 88 18 124/61 02/20/21 15:52 02/20/21 15:52 02/20/21 15:52 02/20/21 15:52 - General well developed, well nourished, no distress - Eyes PERRL - ENT normal pinna - Neck no masses - Respiratory normal expansion - Cardiovascular Rhythm: regular - Abdomen Abdomen: soft, non tender Bariatric Assessment & Plan Plan: Status post sleeve gastrectomy. Patient's dysphagia will be observed. She'll follow-up in 4 weeks. Bariatric Checklist Checklist: Plan: Checklist: EGD: 1. Hiatal hernia: 2. H. Pylori: HgbA1c: Vitamin D: Smoking: Current every day smoker Primary care physician referral: Diandra Psychiatry clearance: Cardiology clearance: Sleep study: Diet journal: VTE risk score: VTE risk level: Rehab needs at discharge:
== END ==
LOC: BARWHC3 15:07
PROVIDERS: ATTEND Surgery
DX: Z09 Encounter for follow-up examination after completed treatment for conditions other than malignant neoplasm (principal); F41.9 Anxiety disorder, unspecified; F17.200 Nicotine dependence, unspecified, uncomplicated; Z79.899 Other long term (current) drug therapy; Z98.84 Bariatric surgery status
CPT/HCPCS: 99211

== ENCOUNTER → 2021-03-14 | Outpatient (CLI) | payer OTHER ==
--- NOTE | 2021-03-14 17:05 | XR ---
EXAMINATION TYPE: XR chest 2V DATE OF EXAM: 03/14/2021 COMPARISON: NONE HISTORY: Dyspnea TECHNIQUE: Frontal and lateral views of the chest are obtained. FINDINGS: There is no focal air space opacity, pleural effusion, or pneumothorax seen. The cardiac silhouette size is within normal limits. The osseous structures are intact. Surgical clips present in the right upper quadrant. IMPRESSION: No acute cardiopulmonary process.
[2021-03-14 23:37] LABS: HCT 42.3 % (37.2-46.3); HGB 12.9 g/dL (12.0-15.0); MCH 24.4 pg (27.0-32.0); MCHC 30.5 g/dL (32.0-37.0); MCV 80.1 fL (80.0-97.0); Mean Platelet Volume 12.6 fL (9.5-12.2); Platelet Count 238 X 10*3/uL (140-440); RBC 5.28 X 10*6/uL (4.10-5.20); RDW 15.4 % (11.5-14.5)
[2021-03-15 07:18] LABS: African American GFR (CKD) 98.2 (60.0-200.0); Albumin 4.3 g/dL (3.80-4.90); Albumin/Globulin Ratio 1.87 (1.60-3.17); Anion Gap 11.4 mmol/L (4.00-12.00); BUN/Creat Ratio 23.75 Ratio (12.00-20.00); Calcium 9.5 mg/dL (8.7-10.3); Carbon Dioxide 23.6 mmol/L (21.6-31.8); Globulin 2.3 g/dL (1.6-3.3); Non-African American GFR(CKD) 84.8 (60.0-200.0); Potassium 4.2 mmol/L (3.5-5.5); T4, Free (Free Thyroxine) 1.2 ng/dL (0.80-1.80); Total Bilirubin 0.8 mg/dL (0.2-1.2); Total Protein 6.6 g/dL (6.2-8.2)
== END | disposition home or self-care (01) ==
LOC: LABWHC1 15:42
PROVIDERS: ATTEND Surgery
DX: R06.00 Dyspnea, unspecified (principal)
CPT/HCPCS: 36415; 71046; 80053; 82306; 82607; 83540; 84439; 84443; 85027

== ENCOUNTER → 2021-03-27 | Outpatient (CLI) | payer OTHER ==
[2021-03-27 14:37] VITALS: BP 138/78; PULSE 57; RESP 18; TEMP 98.1; BMI 30.2
--- NOTE | 2021-03-27 17:35 | P.HPBAR ---
Bariatric H&P - History & Physicial H&P Date: 03/27/21 History & Physicial: Visit/CC: follow up Patient initial contact: Initial weight: 98.566 kg Initial weight in pounds: 217.30 Height: 5 ft 5 in Initial BMI: 36.1 Last weight: Current weight: 82.554 kg Current weight in pounds: 182.00 Current BMI: 30.2 [place] body weight (based on NIH guidelines): 56.699 kg Excess body weight loss: 38.2% The patient is a 51 year-old F who presents for Bariatric Assessment. Presents today for sleeve follow-up. She is proximal to 5 months postop. She is an excellent weight loss. She has some mild GERD. Past Medical History Past Medical History: Blood Disorder, GERD/Reflux, Hypertension, Osteoarthritis (OA) Additional Past Medical History / Comment(s): THALASSEMIA-no current issues per pt., "FATTY LIVER", blood pressure being monitored-no meds for History of Any Multi-Drug Resistant Organisms: None Reported Past Surgical History: Bariatric Surgery, Cholecystectomy, Tonsillectomy, Tubal Ligation, Uterine Ablation Additional Past Surgical History / Comment(s): Sleeve 10/17/20 Past Anesthesia/Blood Transfusion Reactions: Motion Sickness Past Psychological History: Anxiety Additional Psychological History / Comment(s): just this week, very overwhelmed Smoking Status: Former smoker Past Alcohol Use History: None Reported Additional Past Alcohol Use History / Comment(s): smokes 1/2 pack per day STARTED SMOKING AT AGE 16, quit smoking 12-01-19 Past Drug Use History: None Reported - Past Family History Sister(s) Family Medical History: Cancer Additional Family Medical History / Comment(s): BREAST CANCER Father Family Medical History: Cancer Surgical - Exam Vital Signs Temp Pulse Resp BP 98.1 F 57 L 18 138/78 03/27/21 14:32 03/27/21 14:32 03/27/21 14:32 03/27/21 14:32 - General well developed, well nourished, no distress - Eyes PERRL - ENT normal pinna - Neck no masses - Respiratory normal expansion - Cardiovascular Rhythm: regular - Abdomen Abdomen: soft, non tender Bariatric Assessment & Plan Plan: Status post sleeve gastric. Patient is minimal will be observed. She'll follow-up in one month. Bariatric Checklist Checklist: Plan: Checklist: EGD: 1. Hiatal hernia: 2. H. Pylori: HgbA1c: Vitamin D: Smoking: Current every day smoker Primary care physician referral: Diandra Psychiatry clearance: Cardiology clearance: Sleep study: Diet journal: VTE risk score: VTE risk level: Rehab needs at discharge:
== END | disposition home or self-care (01) ==
LOC: BARWHC3 13:50
PROVIDERS: ATTEND Surgery
DX: Z48.815 Encounter for surgical aftercare following surgery on the digestive system (principal); Z98.84 Bariatric surgery status; E66.01 Morbid (severe) obesity due to excess calories; Z71.3 Dietary counseling and surveillance
CPT/HCPCS: 99211

== ENCOUNTER → 2021-06-16 | Outpatient (CLI) | payer OTHER ==
--- NOTE | 2021-06-16 12:18 | CT ---
EXAMINATION TYPE: CT chest wo con DATE OF EXAM: 06/16/2021 COMPARISON: HISTORY: Chest pain, unspecified CT DLP: 151 mGycm. Automated Exposure Control for Dose Reduction was Utilized. TECHNIQUE: CT scan of the thorax is performed without IV contrast. FINDINGS: LUNGS: The lungs are grossly clear, there is no concerning parenchymal mass or nodule identified. T here is no pleural effusion or pneumothorax seen. The tracheobronchial tree is patent. Subpleural no dule measuring 6 mm left upper lobe. Groundglass changes in the right upper lobe are noted medially MEDIASTINUM: Lack of IV contrast is noted to limit evaluation for mediastinal and especially hilar ad enopathy. There are no definitive greater than 1 cm hilar or mediastinal lymph nodes. No cardiomega ly or pericardial effusion is seen. OTHER: Postcholecystectomy changes are noted there is suggestion of previous gastric surgery.. IMPRESSION: Groundglass changes segmentally in the left upper lobe could been the basis of atelectasi s or early pneumonitis correlate clinically. There is a 6 mm subpleural nodule left upper lobe which could be followed on subsequent standard CT chest in 6 months.
--- NOTE | 2021-06-16 12:28 | P.STRESS ---
- Stress Test Note Stress Test Results/Findings: Exam Performed: stress test Exam Date: 06/16/21 Reason for Exam: Chest Pain Height: 5 ft 5 in Weight: 81.647 kg Protocol: Jose Stage: 3 Duration of Exercise: 6:40 Resting Heart Rate: 60 Resting Blood Pressure: 123/82 Maximum Achieved Heart Rate: 160 Maximum Achieved Blood Pressure: 170/78 85% PMHR: 143 100% PMHR: 168 METS: 7.9 Technologist Comment: Stress Test Results/Findings: Baseline heart rate 60 beats a minute, Baseline blood pressure 123/82 mmHg Baseline to EKG shows sinus rhythm normal LA narrow QRS normal ST segments Patient exercised on a Jose protocol for 6 minutes 40 seconds, Achieving a peak heart rate of 160 beats a minute Normal blood pressure response No ECG evidence for ischemia No arrhythmias Impression No ECG evidence for ischemia at this workload level
== END | disposition home or self-care (01) ==
LOC: RADCTMAIN 08:05
PROVIDERS: ATTEND Internal Medicine
DX: J18.9 Pneumonia, unspecified organism (principal); J98.11 Atelectasis
CPT/HCPCS: 71250; 93017

== ENCOUNTER → 2021-06-26 | Outpatient (CLI) | payer OTHER ==
[2021-06-26 15:06] VITALS: BP 154/87; PULSE 79; RESP 18; TEMP 98; BMI 29.6
--- NOTE | 2021-06-26 15:21 | P.HPBAR ---
Bariatric H&P - History & Physicial H&P Date: 06/26/21 History & Physicial: Visit/CC: follow up Patient initial contact: Initial weight: 98.566 kg Initial weight in pounds: 217.30 Height: 5 ft 5 in Initial BMI: 36.1 Last weight: Current weight: 80.739 kg Current weight in pounds: 178.00 Current BMI: 29.6 [place] body weight (based on NIH guidelines): 56.699 kg Excess body weight loss: 42.5% The patient is a 51 year-old F who presents for Bariatric Assessment. Patient presents for bariatric follow. She has some complaints of mild GERD. 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 Past Medical History Past Medical History: Blood Disorder, GERD/Reflux, Hypertension, Osteoarthritis (OA) Additional Past Medical History / Comment(s): THALASSEMIA-no current issues per pt., "FATTY LIVER", blood pressure being monitored-no meds for History of Any Multi-Drug Resistant Organisms: None Reported Past Surgical History: Bariatric Surgery, Cholecystectomy, Tonsillectomy, Tubal Ligation, Uterine Ablation Additional Past Surgical History / Comment(s): Sleeve 10/17/20. oral surgery 2020. Past Anesthesia/Blood Transfusion Reactions: Motion Sickness Past Psychological History: Anxiety Additional Psychological History / Comment(s): just this week, very overwhelmed Smoking Status: Former smoker Past Alcohol Use History: None Reported Additional Past Alcohol Use History / Comment(s): smokes 1/2 pack per day STARTED SMOKING AT AGE 16, quit smoking 12-01-19 Past Drug Use History: None Reported - Past Family History Sister(s) Family Medical History: Cancer Additional Family Medical History / Comment(s): BREAST CANCER Father Family Medical History: Cancer Surgical - Exam Vital Signs Temp Pulse Resp BP 98 F 79 18 154/87 06/26/21 14:53 06/26/21 14:53 06/26/21 14:53 06/26/21 14:53 - General well developed, well nourished, no distress - Eyes PERRL - ENT normal pinna - Neck no masses - Respiratory normal expansion - Cardiovascular Rhythm: regular - Abdomen Abdomen: soft, non tender Bariatric Assessment & Plan Plan: Status post sleeve history. Patient there is minimal old observed. She'll follow-up in 4 weeks. Bariatric Checklist Checklist: Plan: Checklist: EGD: 1. Hiatal hernia: 2. H. Pylori: HgbA1c: Vitamin D: Smoking: Current every day smoker Primary care physician referral: Diandra Psychiatry clearance: Cardiology clearance: Sleep study: Diet journal: VTE risk score: VTE risk level: Rehab needs at discharge:
[2021-06-26 15:33] LABS: HCT 38.9 % (34.0-46.0); HGB 12.5 gm/dL (11.4-16.0); MCH 25.7 pg (25.0-35.0); MCHC 32.2 g/dL (31.0-37.0); MCV 79.9 fL (80.0-100.0); Mean Platelet Volume 8.4; Platelet Count 209 k/uL (150-450); RBC 4.86 m/uL (3.80-5.40); RDW 14.8 % (11.5-15.5); WBC 7.6 k/uL (3.8-10.6)
[2021-06-26 18:59] LABS: % Iron Saturation 19.72 (12.00-45.00)
[2021-06-26 19:00] LABS: African American GFR (CKD) 98.2 (60.0-200.0); Albumin/Globulin Ratio 1.38 (1.60-3.17); Anion Gap 9.1 mmol/L (4.00-12.00); BUN/Creat Ratio 17.5 Ratio (12.00-20.00); Calcium 9.6 mg/dL (8.7-10.3); Carbon Dioxide 27.9 mmol/L (21.6-31.8); Globulin 2.9 g/dL (1.6-3.3); Magnesium 1.7 mg/dL (1.5-2.4); Non-African American GFR(CKD) 84.8 (60.0-200.0); Potassium 3.8 mmol/L (3.5-5.5); Total Bilirubin 1.3 mg/dL (0.2-1.2); Total Protein 6.9 g/dL (6.2-8.2)
[2021-06-26 19:09] LABS: Ferritin 127.1 ng/mL (10.0-291.0); Folate, Serum 7.2 ng/mL
[2021-06-27 11:51] LABS: Zinc, Serum 67 ug/dL (60-130)
[2021-06-28 07:09] LABS: Vitamin A 46 ug/dL (38-106)
== END | disposition home or self-care (01) ==
LOC: BARWHC3 14:36
PROVIDERS: ATTEND Surgery
DX: E66.01 Morbid (severe) obesity due to excess calories (principal); K21.9 Gastro-esophageal reflux disease without esophagitis; I10 Essential (primary) hypertension; M19.90 Unspecified osteoarthritis, unspecified site; D50.8 Other iron deficiency anemias; T56.894A Toxic effect of other metals, undetermined, initial encounter; E44.0 Moderate protein-calorie malnutrition; E55.9 Vitamin D deficiency, unspecified; Z68.29 Body mass index [BMI] 29.0-29.9, adult; Z87.891 Personal history of nicotine dependence; Z90.49 Acquired absence of other specified parts of digestive tract; Z98.84 Bariatric surgery status
CPT/HCPCS: 80053; 82306; 82607; 82728; 82746; 83540; 83550; 83735; 84255; 84425; 84443; 84590; 84630; 85027; 99211

== ENCOUNTER → 2022-02-05 | Outpatient (CLI) | payer OTHER ==
[2022-02-05 15:03] VITALS: BP 128/74; PULSE 82; RESP 16; TEMP 97.7; BMI 29.9
--- NOTE | 2022-02-05 15:49 | P.HPBAR ---
Bariatric H&P - History & Physicial H&P Date: 02/05/22 History & Physicial: Visit/CC: f/u Patient initial contact: Initial weight: 98.566 kg Initial weight in pounds: 217.30 Height: 5 ft 5 in Initial BMI: 36.1 Last weight: Current weight: 81.647 kg Current weight in pounds: 180.00 Current BMI: 29.9 [place] body weight (based on NIH guidelines): 56.699 kg Excess body weight loss: 40.4% The patient is a 51 year-old F who presents for Bariatric Assessment. Patient presents today for bariatric follow. She's has mild complaints of GERD. Her weight is slightly increased. Past Medical History Past Medical History: Blood Disorder, GERD/Reflux, Hypertension, Osteoarthritis (OA) Additional Past Medical History / Comment(s): THALASSEMIA-no current issues per pt., "FATTY LIVER", blood pressure being monitored-no meds for History of Any Multi-Drug Resistant Organisms: None Reported Past Surgical History: Bariatric Surgery, Cholecystectomy, Tonsillectomy, Tubal Ligation, Uterine Ablation Additional Past Surgical History / Comment(s): Sleeve 10/17/20. oral surgery 2020. Past Anesthesia/Blood Transfusion Reactions: Motion Sickness Past Psychological History: Anxiety Additional Psychological History / Comment(s): just this week, very overwhelmed Smoking Status: Former smoker Past Alcohol Use History: None Reported Additional Past Alcohol Use History / Comment(s): smokes 1/2 pack per day STARTED SMOKING AT AGE 16, quit smoking 12-01-19 Past Drug Use History: None Reported - Past Family History Sister(s) Family Medical History: Cancer Additional Family Medical History / Comment(s): BREAST CANCER Father Family Medical History: Cancer Surgical - Exam Vital Signs Temp Pulse Resp BP 97.7 F 82 16 128/74 02/05/22 14:42 02/05/22 14:42 02/05/22 14:42 02/05/22 14:42 - General well developed, well nourished, no distress - Eyes PERRL - ENT normal pinna - Neck no masses - Respiratory normal expansion - Cardiovascular Rhythm: regular - Abdomen Abdomen: soft, non tender Bariatric Assessment & Plan Plan: BMI 30. Patient GERD is minimal and will be observed. She'll follow-up in 4 weeks. Bariatric Checklist Checklist: Plan: Checklist: EGD: 1. Hiatal hernia: 2. H. Pylori: HgbA1c: Vitamin D: Smoking: Current every day smoker Primary care physician referral: Diandra Psychiatry clearance: Cardiology clearance: Sleep study: Diet journal: VTE risk score: VTE risk level: Rehab needs at discharge:
[2022-02-05 22:51] LABS: HCT 42.9 % (37.2-46.3); HGB 13.3 g/dL (12.0-15.0); MCH 24.5 pg (27.0-32.0); MCV 79.2 fL (80.0-97.0); Mean Platelet Volume 12.2 fL (9.5-12.2); NRBC Per 100 WBC 0 /100 WBCS (0.0-0.0); Platelet Count 242 X 10*3/uL (140-440); RBC 5.42 X 10*6/uL (4.10-5.20); RDW 15.6 % (11.5-14.5); WBC 7.84 X 10*3/uL (4.50-10.00)
[2022-02-06 00:47] LABS: Folate, Serum 7.1 ng/mL (4.40-31.00)
[2022-02-06 01:15] LABS: African American GFR (CKD) 108.3 (60.0-200.0); Albumin 4.3 g/dL (3.8-4.9); Albumin/Globulin Ratio 1.61 (1.60-3.17); Anion Gap 16.9 mmol/L (10.00-18.00); BUN/Creat Ratio 20.19 Ratio (12.00-20.00); Blood Urea Nitrogen 14.9 mg/dL (9.0-27.0); Calcium 9.5 mg/dL (8.7-10.3); Carbon Dioxide 22.4 mmol/L (20.0-27.5); Globulin 2.6 g/dL (1.6-3.3); Non-African American GFR(CKD) 93.5 (60.0-200.0); Potassium 4.3 mmol/L (3.5-5.5); Total Bilirubin 1.2 mg/dL (0.30-1.20); Total Protein 6.9 g/dL (6.2-8.2)
== END | disposition home or self-care (01) ==
LOC: BARWHC3 13:39
PROVIDERS: ATTEND Surgery
DX: K90.89 Other intestinal malabsorption (principal); E66.01 Morbid (severe) obesity due to excess calories; E55.9 Vitamin D deficiency, unspecified
CPT/HCPCS: 36415; 80053; 82306; 82607; 82746; 83540; 84425; 85027; 99211